=== PATIENT | male | born 1975 | race Caucasian/White ===

== ENCOUNTER → 2020-01-18 | Outpatient (CLI) | payer OTHER ==
--- NOTE | 2020-01-18 15:33 | RAD ---
STUDY: MRI of the right elbow without contrast INDICATION: Abnormal right elbow radiographs. History of an elbow fracture. COMPARISON: Right elbow radiographs 12/15/2019 TECHNIQUE: Multiplanar MR imaging of the right elbow performed without the use of intravenous or intra-articular contrast. FINDINGS: Limited study on account of patient motion particularly involving the axial and sagittal T2-weighted sequences. Bones/cartilage: Chronic ossific fragments along the coronoid process in keeping with the provided history of a remote elbow fracture. Mild chronic deformity of the radial head. No acute fracture. 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 Associated chondrosis that appears mostly partial-thickness noting limited assessment due to motion. Degenerative changes with osteophytic ridging also seen at the interface of the olecranon process and humerus. Musculotendinous: No tear or advanced tendinosis at the common flexor or extensor origins. Intact biceps brachii and brachialis tendons. Unremarkable distal triceps. Ligaments: Intact radial collateral ligament and lateral ulnar collateral ligament. The annular ligament appears intact but is not fully evaluated due to motion on the axial T2 sequence. The anterior band of the ulnar collateral ligament is intact. Nerves: Subcutaneous edema overlying the ulnar nerve as it approaches the cubital tunnel but it appears as if the nerve is within normal limits for signal and cross-sectional dimension again noting motion degradation. Miscellaneous: Elbow joint effusion with synovitis and small loose bodies. No findings of olecranon bursitis. IMPRESSION: 1. Chronic ossific fragments off the coronoid process and mild chronic deformity of the radial head in keeping with prior elbow trauma. No acute fracture. 2. 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 Associated elbow joint effusion with mild synovitis and small loose bodies. 3. No tendon tear or advanced tendinosis. The radial and ulnar sided ligaments are grossly intact taking into consideration motion. 4. Subcutaneous edema overlying a portion of the ulnar nerve. The appearance of the nerve is within the broad range of normal but recommend correlation for any symptoms of ulnar neuritis. Electronically signed by: RAHUL WILSON MD (01/18/2020 3:30 PM) [id number]
== END ==
LOC: MRI 13:22
PROVIDERS: ATTEND Physician Assistant
DX: M19.021 Primary osteoarthritis, right elbow (principal); M25.421 Effusion, right elbow; M65.88 Other synovitis and tenosynovitis, other site; Z87.81 Personal history of (healed) traumatic fracture
CPT/HCPCS: 73221